=== PATIENT | female | born 1975 | race Caucasian/White ===

== ENCOUNTER 2020-02-19 08:22 | Emergency (ER) | payer SELFPAY ==
[2020-02-19] MEDS ORDERED: CLINDAMYCIN 600 MG/D5W RTU 600 MG/50 ML RTUPB IV ONE (09:38)
[2020-02-19] MEDS ORDERED: RINGERS SOLUTION,LACTATED 1,000 ML IV ONE (09:38)
[2020-02-19] MEDS ORDERED: KETOROLAC TROMETHAMINE INJ/PF 30 MG/1 ML SDV IV ONE (09:38)
--- NOTE | 2020-02-19 09:39 | ER Document Report ---
ED Skin Rash/Insect Bite/Abscs - General Chief Complaint: Abscess Stated Complaint: POSSIBLE LEG INFECTION/FEVER Time Seen by Provider: 02/19/20 08:47 Primary Care Provider: ELVIA ZUNIGA MD [ACTIVE STAFF] - Follow up tomorrow (Call and try to follow-up in 2 days for a recheck) Mode of Arrival: Ambulatory Information source: Patient Notes: 44-year-old female with no previous medical problems presents to the emergency room complaining of redness swelling with possible abscess on her left inner thigh that she noticed 3 to 4 days ago. States she has been running low-grade fevers of 100. States it started draining yesterday. She has been taking warm baths and attempting to drain it on her own without success. No history of MRSA. Only other abscesses she states she is ever had have been on her earlobes. No previous history of incision and drainage of previous abscesses. Has not taken any medications for her symptoms. Denies any chance of . TRAVEL OUTSIDE OF THE [place] IN LAST 30 DAYS: No - Related Data Allergies/Adverse Reactions: No Known Allergies Allergy (Unverified 02/19/20 08:29) Home Medications: claritin Past Medical History - General Information source: Patient - Social History Smoking Status: Former Smoker Chew tobacco use (# tins/day): No Frequency of alcohol use: Occasional Drug Abuse: None Family History: Reviewed & Not Pertinent Review of Systems - Review of Systems Constitutional: Fever Cardiovascular: No symptoms reported Respiratory: No symptoms reported Genitourinary: No symptoms reported Musculoskeletal: No symptoms reported Skin: Other - Abscess Neurological/Psychological: No symptoms reported -: Yes All other systems reviewed and negative Physical Exam - Vital signs Vitals: Temp Pulse Resp BP Pulse Ox 98.3 F 90 16 110/69 98 02/19/20 08:26 02/19/20 08:26 02/19/20 08:26 02/19/20 08:26 02/19/20 08:26 - General General appearance: Appears well, Alert In distress: Mild - Respiratory Respiratory status: No respiratory distress Chest status: Nontender Breath sounds: Normal Chest palpation: Normal - Cardiovascular Rhythm: Regular Heart sounds: Normal auscultation Murmur: No - Extremities General upper extremity: Normal inspection, Nontender, Normal color, Normal ROM, Normal temperature General lower extremity: Normal ROM, Normal weight bearing. No: Mecca's sign Thigh: Tender, Other - Left medial inner thigh with a 5 cm area of erythema. There is a 1/2 cm area that is warm and tender to palpation that is actively draining purulent drainage. No streaking or surrounding erythema noted. - Neurological Neuro grossly intact: Yes Cognition: Normal Orientation: AAOx4 Cassel Coma Scale Eye Opening: Spontaneous Cassel Coma Scale Verbal: Oriented Pieter Coma Scale Motor: Obeys Commands Cassel Coma Scale Total: 15 Speech: Normal Motor strength normal: LUE, RUE, LLE, RLE Sensory: Normal - Skin Skin Temperature: Warm Skin Moisture: Dry Skin Color: Erythema Skin irregularity: Abscess - 5 cm nonfluctuant abscess that is actively draining noted to the left inner thigh. There is a 1/2 cm area in the center of the abscess that is actively draining purulent drainage. It is warm and tender to palpation. Location of irregularity: Extremities Character of irregularity: Erythematous Irregularity with: Swelling, Tenderness, Warmth Course - Re-evaluation Re-evalutation: 02/19/20 11:13 Patient is resting comfortably decreased pain. Afebrile, nontoxic-appearing, labs are stable. Reviewed all lab results with the patient. She was counseled on warm compresses 20 minutes 3 times a day. Take antibiotics as prescribed. Follow-up with a primary care physician for recheck in 2 days. On-call physician was provided. Patient was given strict return to the emergency room guidelines. Return for any new or worsening symptoms. All questions were answered. Patient verbalized understanding and agrees with plan of care. - Vital Signs Vital signs: Temp Pulse Resp BP Pulse Ox 98.3 F 79 16 100/74 98 02/19/20 08:26 02/19/20 12:13 02/19/20 12:13 02/19/20 12:13 02/19/20 12:13 - Laboratory Result Diagrams: 02/19/20 10:10 02/19/20 10:10 Laboratory results interpreted by me: 02/19/20 02/19/20 10:10 10:10 WBC 11.1 H Hct 35.7 L RDW 15.8 H Lactic Acid 0.6 L Discharge - Discharge Clinical Impression: Cellulitis and abscess of left leg Condition: Stable Disposition: HOME, SELF-CARE Instructions: Abscess ([facility]), Cellulitis ([facility]) Additional Instructions: The erythema is likely due to infection and an abscess of your skin. You need to take the antibiotics as prescribed. Do not stop even if the erythema goes away until you have completed all the antibiotics. Warm compresses 20 minutes 3 times a day. You should also return if you develop fevers with temperature greater than 101, persistent vomiting, worsening pain, or have any other symptoms that are concerning to you. Follow-up with your doctor in the next 24- 48 hours. Prescriptions: Clindamycin HCl 300 mg PO QID #40 capsule Forms: Return to Work Referrals: ELVIA ZUNIGA MD [ACTIVE STAFF] - Follow up tomorrow (Call and try to follow-up in 2 days for a recheck)
[2020-02-19 10:27] LABS: ABSOLUTE BASOPHILS # (AUTO) 0.1 10^3/uL (0.0-0.2); ABSOLUTE EOSINOPHILS # (AUTO) 0.5 10^3/uL (0.0-0.6); ABSOLUTE LYMPHOCYTES (AUTO) 2.3 10^3/uL (0.5-4.7); ABSOLUTE MONOCYTES (AUTO) 0.6 10^3/uL (0.1-1.4); ABSOLUTE NEUT (AUTO) 7.6 10^3/uL (1.7-8.2); BASOPHILS % (AUTO) 0.7 % (0-2); EOSINOPHILS % (AUTO) 4.3 % (0-6); HEMATOCRIT 35.7 % (36.0-47.0); HEMOGLOBIN 12.1 g/dL (12.0-15.5); MEAN CORPUSCULAR HEMOGLOBIN 29.1 pg (27.0-33.4); MEAN CORPUSCULAR HGB CONC 33.9 g/dL (32.0-36.0); MEAN CORPUSCULAR VOLUME 86 fl (80-97); MONOCYTES % (AUTO) 5.5 % (3-13); PLATELET COUNT 284 10^3/uL (150-450); RED BLOOD COUNT 4.16 10^6/uL (3.72-5.28); RED CELL DISTRIBUTION WIDTH 15.8 % (11.5-14.0); SEGMENTED NEUTROPHILS % (AUTO) 68.5 % (42-78); TOTAL CELLS COUNTED % (AUTO) 100 %; WHITE BLOOD COUNT 11.1 10^3/uL (4.0-10.5)
[2020-02-19 10:54] LABS: ALBUMIN 3.8 g/dL (3.5-5.0); ALKALINE PHOSPHATASE 74 U/L (38-126); ANION GAP 6 (5-19); ASPARTATE AMINO TRANSFERASE 19 U/L (14-36); BILIRUBIN,DIRECT 0.3 mg/dL (0.0-0.4); BILIRUBIN,TOTAL 0.4 mg/dL (0.2-1.3); BLOOD UREA NITROGEN 9 mg/dL (7-20); CALCIUM 8.8 mg/dL (8.4-10.2); CARBON DIOXIDE 27 mmol/L (22-30); CHLORIDE 107 mmol/L (98-107); GLUCOSE 88 mg/dL (75-110); POTASSIUM 4.7 mmol/L (3.6-5.0); TOTAL PROTEIN 7.2 g/dL (6.3-8.2)
[2020-02-19 12:14] VITALS: BP 100/74
== END 2020-02-19 12:13 | disposition home or self-care (01) ==
LOC: ER 08:22
DX: L02.416 Cutaneous abscess of left lower limb (principal); L03.116 Cellulitis of left lower limb; Z79.899 Other long term (current) drug therapy; Z87.891 Personal history of nicotine dependence
CPT/HCPCS: 99284; 96375; 96365; 36415; 87040; 83605; 85025; 80053; J1885; J7120